=== PATIENT | female | born 1990 | race Caucasian/White ===

== ENCOUNTER → 2021-11-27 | Outpatient (CLI) | payer OTHER | LOC: M WHC 12:46 | PROVIDERS: ATTEND Advanced Practice Midwife | DX: O34.211 Maternal care for low transverse scar from previous cesarean delivery (principal); Z3A.24 24 weeks gestation of pregnancy ==

== ENCOUNTER → 2021-12-19 | Outpatient (CLI) | payer OTHER ==
[2021-12-19 14:08] LABS: HEMATOCRIT 34.1 % (36.0-47.0); HEMOGLOBIN 10.9 g/dl (12.0-15.5); MEAN CORPUSCULAR VOLUME 90.7 fl (80.0-96.0); PLATELET COUNT, AUTOMATED 128 10^3/uL (150-450); RED BLOOD COUNT 3.76 10^6/uL (4.00-5.40); WHITE BLOOD COUNT 6.1 10^3/uL (4.0-10.0)
[2021-12-19 15:47] LABS: GC DNA AMPLIFICATION NEGATIVE (NEGATIVE)
== END ==
LOC: M PLALAB 09:11
PROVIDERS: ATTEND Advanced Practice Midwife
DX: O34.211 Maternal care for low transverse scar from previous cesarean delivery (principal)

== ENCOUNTER → 2021-12-26 | Outpatient (CLI) | payer OTHER | LOC: M LAB 08:21 | PROVIDERS: ATTEND Advanced Practice Midwife | DX: O99.810 Abnormal glucose complicating pregnancy (principal) ==

== ENCOUNTER → 2022-01-29 | Outpatient (CLI) | payer OTHER | LOC: M WHC 11:12 | PROVIDERS: ATTEND Advanced Practice Midwife | DX: Z36.2 Encounter for other antenatal screening follow-up (principal); Z3A.33 33 weeks gestation of pregnancy ==

== ENCOUNTER → 2022-02-21 | Outpatient (CLI) | payer OTHER ==
[2022-02-21 17:23] LABS: HEMATOCRIT 32.8 % (36.0-47.0); HEMOGLOBIN 10.4 g/dl (12.0-15.5); MEAN CORPUSCULAR HEMOGLOBIN 26.9 pg (27.0-33.0); MEAN CORPUSCULAR HGB CONC 31.7 g/dl (32.0-36.5); MEAN CORPUSCULAR VOLUME 84.8 fl (80.0-96.0); PLATELET COUNT, AUTOMATED 116 10^3/uL (150-450); RED BLOOD COUNT 3.87 10^6/uL (4.00-5.40); WHITE BLOOD COUNT 6.5 10^3/uL (4.0-10.0)
== END ==
LOC: M PLALAB 16:04
PROVIDERS: ATTEND Obstetrics & Gynecology
DX: D69.6 Thrombocytopenia, unspecified (principal)

== ENCOUNTER 2022-03-05 16:56 | Inpatient (IN) | payer OTHER ==
[2022-03-05] VITALS (12 sets, daily range): BP systolic 142–185; BP diastolic 89–112
[~2022-03-05] VITALS: Ht 172.7 cm; Wt 84.1 kg
[~2022-03-05 16:56] MED LIST changes: -COLA100C5 PO; -IBUP80TA PO; -LABE100T71 PO; -PERCOCET PO
[2022-03-05] MEDS ORDERED: HOME MED LIST COMPLETE! XX SCH (17:50)
[2022-03-05] MEDS ORDERED: LACTATED RINGER'S 1000 ML IV STA (18:02)
[2022-03-05] MEDS ORDERED: METHYLERGONOVINE MALEATE 0.2 MG/ML VIAL (J2210) IM PRN (18:05)
[2022-03-05] MEDS ORDERED: LIDOCAINE 1% MDV 20ML VIAL INFIL PRN (18:05)
[2022-03-05] MEDS ORDERED: LR 1,000 ML IV SCH ×3 (18:05→22:25)
[2022-03-05] MEDS ORDERED: ceFAZolin SOD 2 GM in IV 1 EA IV ONE (18:05)
[2022-03-05] MEDS ORDERED: OXYTOCIN DRIP 30 UNITS in IV 1 EA IV PRN (18:05)
[2022-03-05] MEDS ORDERED: TRANEXAMIC ACID INJection 1,000 MG in NS 100 ML IV PRN (18:05)
[2022-03-05] MEDS ORDERED: BICITRA 30ML SOLN UDC PO ONE (18:05)
[2022-03-05] MEDS ORDERED: CARBOPROST TROMETHAMINE 250 MCG/ML AMP IM PRN (18:05)
[2022-03-05] MEDS: LABETALOL 100MG/20ML VIAL IV SCH ×2 (18:19→18:38)
[2022-03-05 18:27] LABS: HEMATOCRIT 33.8 % (36.0-47.0); HEMOGLOBIN 10.8 g/dl (12.0-15.5); MEAN CORPUSCULAR HEMOGLOBIN 26.7 pg (27.0-33.0); MEAN CORPUSCULAR VOLUME 83.7 fl (80.0-96.0); PLATELET COUNT, AUTOMATED 126 10^3/uL (150-450); RED BLOOD COUNT 4.04 10^6/uL (4.00-5.40); WHITE BLOOD COUNT 5.9 10^3/uL (4.0-10.0)
[2022-03-05 18:30] LABS: APPEARANCE, URINE MANUAL CLEAR (CLEAR); COLOR, URINE MANUAL LT YELLOW (YELLOW)
[2022-03-05 18:31] LABS: BILIRUBIN, URINE MANUAL NEGATIVE (NEGATIVE); BLOOD URINE MANUAL TRACE (NEGATIVE); GLUCOSE, URINE (UA) MANUAL NEGATIVE (NEGATIVE); KETONE, URINE MANUAL NEGATIVE (NEGATIVE); LEUKOCYTE ESTERASE, URINE MAN POSITIVE (NEGATIVE); NITRITE, URINE MANUAL NEGATIVE (NEGATIVE); PROTEIN, URINE MANUAL TRACE mg/dL (NEGATIVE); UROBILINOGEN, URINE MANUAL NORMAL (NORMAL)
[2022-03-05 19:50] LABS: BACTERIA, URINE MOD AMOUNT; SQUAMOUS EPITHELIAL CELL URINE LARGE AMOUNT /hpf (SMALL AMT)
[2022-03-05 19:51] LABS: HYALINE CAST, URINE NONE SEEN /lpf (0-1)
[2022-03-05] MEDS ORDERED: NALOXONE INJ 0.4MG/1ML VIAL (J2310 PER 1MG) IV PRN ×2 (20:00)
[2022-03-05] MEDS ORDERED: diphenhydrAMINE 50MG/ML VIAL IV PRN (20:00)
[2022-03-05] MEDS ORDERED: METOCLOPRAMIDE INJ 10MG/2ML VIAL (J2765 PER 1) IV PRN (20:00)
[2022-03-05] MEDS ORDERED: fentaNYL 100 MCG/2 ML INJECTION IV PRN (20:00)
[2022-03-05] MEDS ORDERED: MEPERIDINE INJ 25 MG/ML VIAL (J2175) IV PRN (20:00)
[2022-03-05] MEDS ORDERED: SLF 3 ML SYR IV SCH (20:00)
[2022-03-05] MEDS ORDERED: **NOTE PATIENT COMMENT** MISC XX SCH (20:00)
[2022-03-05] MEDS ORDERED: PERCOCET 5MG/325MG TAB PO PRN ×3 (20:00→22:25)
[2022-03-05] MEDS ORDERED: ONDANSETRON 4MG 2ML VIAL IV PRN (20:00)
[2022-03-05] MEDS ORDERED: ONDANSETRON 4MG 2ML VIAL As Ordered ONE (21:21)
[2022-03-05] MEDS ORDERED: MORPHINE PRES-FREE INJ 10 MG/10 ML VIAL As Ordered ONE (21:21)
[2022-03-05] MEDS ORDERED: OXYTOCIN INJ 10 UNITS/ML VIAL (J2590) As Ordered ONE (21:21)
[2022-03-05] MEDS ORDERED: KETOROLAC 60MG 2ML VIAL As Ordered ONE (21:39)
[2022-03-05] MEDS ORDERED: LABETALOL 100MG/20ML VIAL IV STA ×2 (22:20→22:23)
[2022-03-05] MEDS ORDERED: LABETALOL 100MG/20ML VIAL As Ordered ONE (22:21)
[2022-03-05] MEDS ORDERED: ACETAMINOPHEN 500 MG TAB PO PRN (22:25)
[2022-03-05] MEDS ORDERED: SIMETHICONE 80MG CHEW TAB PO PRN (22:25)
[2022-03-05] MEDS ORDERED: RHOGAM 300 MCG (1500 IU) INJ (J2790) IM SCH (22:25)
[2022-03-05] MEDS ORDERED: MORPHINE 4 MG/ML 1ML VIAL/SYRINGE IV PRN (22:25)
[2022-03-05] MEDS ORDERED: OXYTOCIN DRIP 30 UNITS in IV 1 EA IV SCH (22:25)
[2022-03-05] MEDS ORDERED: hydrALAZINE 20MG/ML 1ML VIAL (J0360 PER 20MG) IV STA (23:07)
[2022-03-05] MEDS ORDERED: hydrALAZINE 20MG/ML 1ML VIAL (J0360 PER 20MG) As Ordered ONE (23:09)
[2022-03-05] MEDS ORDERED: OXYTOCIN 30 UNITS IN 0.9% NaCl 500ML IV BAG (J2590) As Ordered ONE (23:13)
[2022-03-05] MEDS ORDERED: LABETALOL 200 MG TAB PO STA (23:38)
[2022-03-06] VITALS (8 sets, daily range): BP systolic 122–140; BP diastolic 65–87
[2022-03-06] MEDS: ONDANSETRON 4MG 2ML VIAL IV PRN ×2 (00:25→06:25)
[2022-03-06] MEDS: KETOROLAC 30 MG/ML 1ML VIAL IV SCH ×3 (03:57→16:57)
[2022-03-06 06:50] LABS: HEMOGLOBIN 9.2 g/dl (12.0-15.5); MEAN CORPUSCULAR HEMOGLOBIN 26.9 pg (27.0-33.0); MEAN CORPUSCULAR HGB CONC 31.7 g/dl (32.0-36.5); MEAN CORPUSCULAR VOLUME 84.8 fl (80.0-96.0); PLATELET COUNT, AUTOMATED 100 10^3/uL (150-450); RED BLOOD COUNT 3.42 10^6/uL (4.00-5.40); WHITE BLOOD COUNT 10.4 10^3/uL (4.0-10.0)
[2022-03-06] MEDS ORDERED: PROMETHAZINE 25MG/ML 1ML VIAL IV ONE (08:05)
[2022-03-06] MEDS ORDERED: LR 1,000 ML IV ONE (08:30)
[2022-03-06] MEDS: PRENATAL VITAMINS CHEWABLE TABLET PO SCH (09:00)
[2022-03-06] MEDS: DOCUSATE SODIUM 100MG CAPSULE PO SCH ×2 (09:00→21:22)
[2022-03-06] MEDS ORDERED: COLA100C5 PO (14:20)
[2022-03-06] MEDS ORDERED: IBUP80TA PO (14:20)
[2022-03-06] MEDS ORDERED: PERCOCET PO (14:21)
[2022-03-07] MEDS: IBUPROFEN 800 MG TAB PO SCH ×2 (00:29→08:28)
[2022-03-07 06:00] VITALS: BP 135/86
[2022-03-07] MEDS: DOCUSATE SODIUM 100MG CAPSULE PO SCH (08:28)
[2022-03-07] MEDS: PRENATAL VITAMINS CHEWABLE TABLET PO SCH (08:28)
[2022-03-07] MEDS ORDERED: MEASLES,MUMPS,RUBELLA VACCINE INJ (MMR-II) (90707) SC.IMMUN ONE (09:00)
[2022-03-07 10:00] VITALS: BP 138/83
[2022-03-07] MEDS ORDERED: INFLUENZA QUADRIVALENT PF VACCINE 0.5ML SYRINGE IM.IMMUN ONE (11:00)
[2022-03-09] MEDS ORDERED: LABE100T71 PO (13:47)
== END 2022-03-07 13:15 | disposition home or self-care (01) | DRG 772 ==
LOC: M LDO 16:56 → M LDI 17:42 → M OBS 03-06 00:26
PROVIDERS: ADMIT Obstetrics & Gynecology; ATTEND Obstetrics & Gynecology
PROC: 10D00Z1 Extraction of Products of Conception, Low, Open Approach (ICD-10-PCS; principal; 2022-03-05)
DX: O14.14 Severe pre-eclampsia complicating childbirth (principal); O99.12 Other diseases of the blood and blood-forming organs and certain disorders involving the immune mechanism complicating childbirth; Z3A.38 38 weeks gestation of pregnancy; O34.211 Maternal care for low transverse scar from previous cesarean delivery; D69.6 Thrombocytopenia, unspecified; Z37.0 Single live birth

== ENCOUNTER → 2022-03-05 | Outpatient (CLI) | payer OTHER ==
[~2022-03-05] MED LIST: ACET1TAB55 PO; COLA100C5 PO; IBUP80TA PO; LABE100T71 PO; PERCOCET PO; PREN1CHW4 PO
[2022-03-05 13:27] LABS: HEMATOCRIT 34.2 % (36.0-47.0); HEMOGLOBIN 10.7 g/dl (12.0-15.5); MEAN CORPUSCULAR HEMOGLOBIN 26.5 pg (27.0-33.0); MEAN CORPUSCULAR HGB CONC 31.3 g/dl (32.0-36.5); MEAN CORPUSCULAR VOLUME 84.7 fl (80.0-96.0); PLATELET COUNT, AUTOMATED 119 10^3/uL (150-450); RED BLOOD COUNT 4.04 10^6/uL (4.00-5.40); WHITE BLOOD COUNT 5.9 10^3/uL (4.0-10.0)
[2022-03-05 13:59] LABS: ALBUMIN 2.6 G/DL (3.2-5.2); ALT/SGPT 12 U/L (7.0-40); BILIRUBIN,TOTAL 0.3 MG/DL (0.3-1.2); BLOOD UREA NITROGEN 7 MG/DL (9-23); CALCIUM LEVEL 8.5 MG/DL (8.5-10.1); CARBON DIOXIDE LEVEL 22 MMOL/L (20-31); CHLORIDE LEVEL 105 MMOL/L (98-107); CREATININE FOR GFR 0.72 MG/DL (0.55-1.30); CREATININE,RANDOM URINE 74.3 MG/DL; GLOMERULAR FILTRATION RATE > 60.0 (>60); GLUCOSE, FASTING 72 MG/DL (60-100); POTASSIUM SERUM 4.5 MMOL/L (3.5-5.1); SODIUM LEVEL 136 MMOL/L (136-145); TOTAL PROTEIN 5.9 G/DL (5.7-8.2); TOTAL PROTEIN,RANDOM URINE 26.5 MG/DL (0.0-14.0)
== END ==
LOC: M PLALAB 12:14
PROVIDERS: ATTEND Obstetrics & Gynecology
DX: I10 Essential (primary) hypertension (principal)

== ENCOUNTER → 2022-08-02 | Outpatient (CLI) | payer OTHER ==
[~2022-08-02] MED LIST changes: +COLA100C5 PO; +IBUP80TA PO; +LABE100T71 PO; +PERCOCET PO
== END ==
LOC: M RAD 15:51
PROVIDERS: ATTEND Nurse Practitioner Adult Health
DX: E07.9 Disorder of thyroid, unspecified (principal)

== ENCOUNTER → 2022-08-12 | Outpatient (CLI) | payer OTHER ==
[2022-08-12 10:02] LABS: BASO % 0.2 % (0.0-1.0); EOS # 0.1 10^3/uL (0.0-0.5); EOS % 1.4 % (0.0-3.0); HEMATOCRIT 38.1 % (36.0-47.0); HEMOGLOBIN 12.2 g/dl (12.0-15.5); LYMPH # 1.7 10^3/uL (1.5-5.0); LYMPH % 32.4 % (24.0-44.0); MEAN CORPUSCULAR HEMOGLOBIN 27.5 pg (27.0-33.0); MONO # 0.4 10^3/uL (0.0-0.8); MONO % 8.3 % (2.0-8.0); NEUTROPHILS # 2.9 10^3/uL (1.5-8.5); NEUTROPHILS % 57.5 % (36.0-66.0); PLATELET COUNT, AUTOMATED 145 10^3/uL (150-450); RED BLOOD COUNT 4.43 10^6/uL (4.00-5.40); WHITE BLOOD COUNT 5.1 10^3/uL (4.0-10.0)
[2022-08-12 10:35] LABS: ALBUMIN 3.6 G/DL (3.2-5.2); ALKALINE PHOSPHATASE 70 U/L (46-116); ALT/SGPT 9 U/L (7.0-40); AST/SGOT 13 U/L (<34); BILIRUBIN,TOTAL 0.7 MG/DL (0.3-1.2); BLOOD UREA NITROGEN 11 MG/DL (9-23); CALCIUM LEVEL 8.8 MG/DL (8.5-10.1); CARBON DIOXIDE LEVEL 26 MMOL/L (20-31); CHLORIDE LEVEL 105 MMOL/L (98-107); CHOLESTEROL LEVEL 147 MG/DL (<200); CHOLESTEROL RISK RATIO 3.55 (<5); CREATININE FOR GFR 0.71 MG/DL (0.55-1.30); GLOMERULAR FILTRATION RATE > 60.0 (>60); GLUCOSE, FASTING 83 MG/DL (60-100); HDL CHOLESTEROL 41.4 MG/DL (>40); LDL CHOLESTEROL 73.4 MG/DL (<100); NON-HDL-C 105.6 MG/DL; SODIUM LEVEL 137 MMOL/L (136-145); THYROID STIMULATING HORMONE 0.628 uIU/ML (0.55-4.78); TOTAL PROTEIN 6.9 G/DL (5.7-8.2); TRIGLYCERIDES LEVEL 161 MG/DL (<150)
[2022-08-12 10:36] LABS: FREE T4 0.98 NG/DL (0.89-1.76); THYROID PEROXIDASE ANTIBODY < 28.0 U/ML (<60.0)
[2022-08-14 10:01] LABS: THYROGLOBULIN ANTIBODY < 15.0 U/ML (<60.0)
== END ==
LOC: M WUC 08:28
PROVIDERS: ATTEND Nurse Practitioner Adult Health
DX: Z13.220 Encounter for screening for lipoid disorders (principal); Z13.29 Encounter for screening for other suspected endocrine disorder; E07.9 Disorder of thyroid, unspecified

== ENCOUNTER → 2022-12-08 | Outpatient (REF) | payer OTHER | LOC: M LAB REF 12:34 | PROVIDERS: ATTEND Physician Assistant | DX: R30.0 Dysuria (principal) ==

== ENCOUNTER → 2022-12-11 | Outpatient (CLI) | payer OTHER ==
[2022-12-11 11:09] LABS: HEMATOCRIT 39.5 % (36.0-47.0); HEMOGLOBIN 12.6 g/dl (12.0-15.5); MEAN CORPUSCULAR HEMOGLOBIN 27.8 pg (27.0-33.0); MEAN CORPUSCULAR HGB CONC 31.9 g/dl (32.0-36.5); PLATELET COUNT, AUTOMATED 128 10^3/uL (150-450); RED BLOOD COUNT 4.54 10^6/uL (4.00-5.40); WHITE BLOOD COUNT 5.1 10^3/uL (4.0-10.0)
== END ==
LOC: M PLALAB 08:16
PROVIDERS: ATTEND Obstetrics & Gynecology
DX: N93.9 Abnormal uterine and vaginal bleeding, unspecified (principal)
CPT/HCPCS: 36415; 84443; 85027; 87086; 87624; G0123; G0463

== ENCOUNTER → 2022-12-11 | Outpatient (REF) | payer OTHER | LOC: M PLALAB 08:18 | PROVIDERS: ATTEND Obstetrics & Gynecology | DX: N39.0 Urinary tract infection, site not specified (principal); Z12.4 Encounter for screening for malignant neoplasm of cervix ==

== ENCOUNTER → 2022-12-25 | Outpatient (CLI) | payer OTHER | LOC: M WHC 12:07 | PROVIDERS: ATTEND Obstetrics & Gynecology | DX: N93.9 Abnormal uterine and vaginal bleeding, unspecified (principal); N85.00 Endometrial hyperplasia, unspecified ==

== ENCOUNTER → 2023-03-13 | Outpatient (REF) | payer OTHER | LOC: M LAB REF 16:50 | PROVIDERS: ATTEND Nurse Practitioner Adult Health | DX: R30.0 Dysuria (principal) ==

== ENCOUNTER → 2023-09-01 | Outpatient (REF) | payer OTHER ==
[~2023-09-01] MED LIST changes: +LABE100T40 PO; -LABE100T71 PO
[2023-09-01 18:49] LABS: FREE T4 1.13 NG/DL (0.89-1.76); THYROID STIMULATING HORMONE 0.795 uIU/ML (0.55-4.78)
== END ==
LOC: M LAB REF 18:07
PROVIDERS: ATTEND Nurse Practitioner Adult Health
DX: E07.9 Disorder of thyroid, unspecified (principal)

== ENCOUNTER → 2023-10-27 | Outpatient (CLI) | payer OTHER | LOC: M WHC 13:14 | PROVIDERS: ATTEND Advanced Practice Midwife | DX: N63.0 Unspecified lump in unspecified breast (principal); Z80.3 Family history of malignant neoplasm of breast | CPT/HCPCS: 77066; G0279 ==

== ENCOUNTER → 2024-03-08 | Outpatient (CLI) | payer OTHER ==
[2024-03-08 12:53] LABS: FREE T4 1.18 NG/DL (0.89-1.76); THYROID STIMULATING HORMONE 1.262 uIU/ML (0.55-4.78)
== END ==
LOC: M WUC 10:09
PROVIDERS: ATTEND Nurse Practitioner Adult Health
DX: E07.9 Disorder of thyroid, unspecified (principal)

== ENCOUNTER → 2024-06-10 | Outpatient (CLI) | payer OTHER ==
[2024-06-10 15:07] LABS: IRON (FE) 91 UG/DL (50-170)
[2024-06-10 15:08] LABS: ALBUMIN 4.2 G/DL (3.2-5.2); ALKALINE PHOSPHATASE 59 U/L (35-104); ALT/SGPT 16 U/L (7.0-40); AST/SGOT 12 U/L (<34); BILIRUBIN,TOTAL 0.6 MG/DL (0.3-1.2); BLOOD UREA NITROGEN 8 MG/DL (9-23); CALCIUM LEVEL 9.4 MG/DL (8.5-10.1); CARBON DIOXIDE LEVEL 28 MMOL/L (20-31); CHLORIDE LEVEL 107 MMOL/L (98-107); CREATININE FOR GFR 0.69 MG/DL (0.55-1.30); FERRITIN 17.8 NG/ML (7.3-270.7); GLOMERULAR FILTRATION RATE > 60.0 (>60); GLUCOSE, FASTING 90 MG/DL (60-100); MAGNESIUM LEVEL 1.9 MG/DL (1.8-2.4); POTASSIUM SERUM 4.6 MMOL/L (3.5-5.1); SODIUM LEVEL 141 MMOL/L (136-145); TOTAL PROTEIN 7.4 G/DL (5.7-8.2)
[2024-06-10 15:09] LABS: BASO % 0.5 % (0.0-1.0); EOS # 0.1 10^3/uL (0.0-0.5); HEMATOCRIT 40.9 % (36.0-47.0); HEMOGLOBIN 13.1 g/dl (12.0-15.5); LYMPH # 1.7 10^3/uL (1.5-5.0); LYMPH % 27.4 % (24.0-44.0); MEAN CORPUSCULAR HEMOGLOBIN 29.3 pg (27.0-33.0); MEAN CORPUSCULAR VOLUME 91.5 fl (80.0-96.0); MONO # 0.5 10^3/uL (0.0-0.8); MONO % 8.3 % (2.0-8.0); NEUTROPHILS # 3.8 10^3/uL (1.5-8.5); NEUTROPHILS % 62.6 % (36.0-66.0); PLATELET COUNT, AUTOMATED 191 10^3/uL (150-450); RED BLOOD COUNT 4.47 10^6/uL (4.00-5.40); THYROID STIMULATING HORMONE 1.001 uIU/ML (0.55-4.78)
[2024-06-10 15:10] LABS: FREE T4 1.31 NG/DL (0.89-1.76)
== END ==
LOC: M PLALAB 10:12
PROVIDERS: ATTEND Advanced Practice Midwife
DX: Z01.419 Encounter for gynecological examination (general) (routine) without abnormal findings (principal); N93.9 Abnormal uterine and vaginal bleeding, unspecified; R42 Dizziness and giddiness

== ENCOUNTER → 2024-06-14 | Outpatient (CLI) | payer OTHER | LOC: M RAD 11:31 | PROVIDERS: ATTEND Advanced Practice Midwife | DX: N93.9 Abnormal uterine and vaginal bleeding, unspecified (principal); N88.8 Other specified noninflammatory disorders of cervix uteri; N83.201 Unspecified ovarian cyst, right side; N83.202 Unspecified ovarian cyst, left side ==

== ENCOUNTER 2024-07-16 06:03 | Day surgery (SDC) | payer OTHER ==
[~2024-07-16] VITALS: Ht 172.7 cm; Wt 72.2 kg
[2024-07-16] VITALS (7 sets, daily range): BP systolic 97–120; BP diastolic 58–65; TEMP 97.9–99.8; O2SAT 97–98
[~2024-07-16 06:03] MED LIST changes: +IMIT50TA PO; +ONDA-282 PO
[2024-07-16] MEDS ORDERED: propofoL 200 MG/20 ML VIAL As Ordered ONE (06:47)
[2024-07-16] MEDS ORDERED: LIDOCAINE 2% INJ 100 MG/5 ML SYRINGE As Ordered ONE (06:47)
[2024-07-16] MEDS ORDERED: ROCURONIUM BROMIDE 50MG/5ML VIAL As Ordered ONE (06:47)
[2024-07-16] MEDS ORDERED: MIDAZOLAM INJ 2MG/2ML VIAL As Ordered ONE (06:48)
[2024-07-16] MEDS ORDERED: fentaNYL 100 MCG/2 ML INJECTION As Ordered ONE (06:49)
[2024-07-16 06:50] LABS: HEMATOCRIT 39.3 % (36.0-47.0); HEMOGLOBIN 12.9 g/dl (12.0-15.5); MEAN CORPUSCULAR HEMOGLOBIN 29.6 pg (27.0-33.0); MEAN CORPUSCULAR HGB CONC 32.8 g/dl (32.0-36.5); MEAN CORPUSCULAR VOLUME 90.1 fl (80.0-96.0); PLATELET COUNT, AUTOMATED 155 10^3/uL (150-450); RED BLOOD COUNT 4.36 10^6/uL (4.00-5.40); WHITE BLOOD COUNT 5.3 10^3/uL (4.0-10.0)
[2024-07-16] MEDS ORDERED: LIDOCAINE 2% 100MG/5ML SDV (FOR ANES.) As Ordered ONE (06:51)
[2024-07-16] MEDS ORDERED: GLYCOPYRROLATE INJ 0.2 MG/ML 2 ML VIAL As Ordered ONE (06:56)
[2024-07-16] MEDS: LR 1,000 ML IV SCH ×2 (07:10→11:38)
[2024-07-16] MEDS: SCOPOLAMINE 1MG TRANSDERMAL PATCH TOP ONE (07:18)
[2024-07-16] MEDS ORDERED: KETOROLAC 30 MG/ML 1ML VIAL As Ordered ONE (07:21)
[2024-07-16] MEDS ORDERED: ONDANSETRON 4MG 2ML VIAL As Ordered ONE (07:21)
[2024-07-16] MEDS ORDERED: ACETAMINOPHEN 1000MG/100ML IV BAG As Ordered ONE (07:21)
[2024-07-16] MEDS ORDERED: SUGAMMADEX SODIUM 500 MG/5 ML VIAL (BRIDION) As Ordered ONE (07:21)
[2024-07-16] MEDS ORDERED: METOCLOPRAMIDE INJ 10MG/2ML VIAL As Ordered ONE (07:21)
[2024-07-16] MEDS: ceFAZolin SOD 2 GM IV ONCE IV ONE (08:00)
[2024-07-16] MEDS ORDERED: HYDROmorphone HCL 2MG/ML 1ML VIAL As Ordered ONE (08:12)
[2024-07-16] MEDS ORDERED: PHENYLephrine 500MCG 5ML (100MCG/ML) SYRINGE As Ordered ONE (08:24)
[2024-07-16] MEDS ORDERED: ePHEDrine SULFATE 25 MG/5 ML(5MG/ML) SYRINGE As Ordered ONE (08:24)
[2024-07-16] MEDS: METHYLENE BLUE 0.5% (5MG/ML) 10 ML AMP (PROVAYBLUE) As Ordered ONE (08:59)
[2024-07-16] MEDS ORDERED: fentaNYL 100 MCG/2 ML INJECTION IV PRN (09:15)
[2024-07-16] MEDS ORDERED: PERCOCET 5MG/325MG TAB PO PRN ×3 (09:15)
[2024-07-16] MEDS ORDERED: HYDROMORPHONE HCL 0.5 MG/ 0.5 ML SYRINGE IV PRN (09:15)
[2024-07-16] MEDS ORDERED: ONDANSETRON 4MG 2ML VIAL IV PRN ×2 (09:15)
[2024-07-16] MEDS ORDERED: MORPHINE 4 MG/ML 1ML VIAL IV PRN (09:15)
[2024-07-16] MEDS ORDERED: METOCLOPRAMIDE INJ 10MG/2ML VIAL IV PRN (09:15)
[2024-07-16] MEDS ORDERED: PERCOCET PO (09:28)
[2024-07-16] MEDS: KETOROLAC 30 MG/ML 1ML VIAL IV SCH (15:24)
[2024-07-16] MEDS ORDERED: HOME MED LIST COMPLETE! XX SCH (15:35)
[2024-07-16] MEDS ORDERED: DOCUSATE SODIUM 100MG CAPSULE PO SCH (21:00)
[2024-07-17] MEDS ORDERED: IBUPROFEN 800 MG TAB PO SCH (11:00)
== END 2024-07-16 20:34 | disposition home or self-care (01) ==
LOC: M SDC 06:03 → M OR 09:29 → M RR INP 09:29 → UNDOADMOB 09:29 → M PED 10:25 → M OR 10:25 → M RR INP 10:25 → M PED 20:34 → M SDC 20:34 → UNDODISOB 20:34
PROVIDERS: ATTEND Obstetrics & Gynecology
DX: N88.8 Other specified noninflammatory disorders of cervix uteri (principal); N84.1 Polyp of cervix uteri; N93.8 Other specified abnormal uterine and vaginal bleeding; R10.2 Pelvic and perineal pain; Z79.899 Other long term (current) drug therapy
CPT/HCPCS: 36415; 58571; 81025; 85027; 86850; 86900; 86901; 88307; 96374; J0131; J0665; J0690; J1100; J1171; J1596; J1885; J2250; J2371; J2405; J2765; J3010; S2900

== ENCOUNTER → 2024-07-19 | Outpatient (REF) | payer OTHER ==
[2024-07-19 11:58] LABS: APPEARANCE, URINE CLEAR (CLEAR); BACTERIA, URINE AUTO NEGATIVE (NEGATIVE); BILIRUBIN, URINE AUTO NEGATIVE (NEGATIVE); BLOOD, URINE BLOOD 1+ (NEGATIVE); COLOR, URINE YELLOW (YELLOW); GLUCOSE, URINE (UA) AUTO NEGATIVE (NEGATIVE); KETONE, URINE AUTO NEGATIVE (NEGATIVE); LEUKOCYTE ESTERASE, URINE AUTO TRACE (NEGATIVE); MUCUS, URINE SMALL (NEGATIVE); NITRITE, URINE AUTO NEGATIVE (NEGATIVE); PROTEIN, URINE AUTO NEGATIVE (NEGATIVE); RBC, URINE AUTO 1 /HPF (0-3); SPECIFIC GRAVITY URINE AUTO 1.014 (1.002-1.035); SQUAMOUS EPITHELIAL CELL UR AU 4 /HPF (0-6); UROBILINOGEN, URINE AUTO 0.2 mg/dL (0.0-2.0); WBC, URINE AUTO 1 /HPF (0-3)
== END ==
LOC: M SFHCWAGY 10:04
PROVIDERS: ATTEND Obstetrics & Gynecology
DX: R30.0 Dysuria (principal)